=== PATIENT | female | born 1980 | race Caucasian/White ===

== ENCOUNTER → 2020-11-24 | Outpatient (CLI) | payer OTHER ==
[~2020-11-24] MED LIST: OXYC-325 PO
== END ==
LOC: LAB 10:43
PROVIDERS: ATTEND Surgery
DX: Z01.812 Encounter for preprocedural laboratory examination (principal); Z20.822 Contact with and (suspected) exposure to COVID-19; K80.10 Calculus of gallbladder with chronic cholecystitis without obstruction
CPT/HCPCS: U0003

== ENCOUNTER 2020-11-27 06:38 | Day surgery (SDC) | payer OTHER ==
[~2020-11-27 06:38] MED LIST changes: +HYDROmorphone 2 MG/ML VIAL IVP PRN; +IV RINGERS,LACTATED 1000ML 1,000 ML IV SCH; +MORPHINE SULFATE 2 MG/ML VIAL. IVP PRN; -OXYC-325 PO; +PROCHLORPERAZINE 10 MG/2 ML VIAL. IVP PRN; +fentaNYL PF VIAL 100 MCG/2 ML VIAL IVP PRN
[2020-11-27] MEDS ORDERED: BUPIVACAINE-EPI 0.25% 30 ML VIAL KIT. ONE (07:14)
[2020-11-27] MEDS ORDERED: IOHEXOL 300 MG/ML 50 ML VIAL. ONE (07:14)
[2020-11-27] MEDS ORDERED: SURGICEL HEMOSTAT 4X8 EACH. ONE (07:14)
[2020-11-27] MEDS ORDERED: LIDOCAINE 2% PF 5 ML VIAL. ONE (07:15)
[2020-11-27] MEDS ORDERED: SCOPOLAMINE 1.5MG PATCH. TD SCH (07:15)
[2020-11-27] MEDS ORDERED: ACETAMINOPHEN 500 MG TABLET PO ONE (07:15)
[2020-11-27] MEDS ORDERED: PROPOFOL 10 MG/ML (20ML) VIAL. IV ONE (07:15)
[2020-11-27] MEDS ORDERED: FAMOTIDINE 20 MG/2 ML VIAL ONE (07:15)
[2020-11-27] MEDS ORDERED: DEXAMETHASONE SOD PHOS 4 MG/ML VIAL ONE ×2 (07:15→07:54)
[2020-11-27] MEDS ORDERED: ROCURONIUM 50 MG/5 ML VIAL. ONE (07:15)
[2020-11-27] MEDS ORDERED: ONDANSETRON PF 4 MG/2 ML VIAL. ONE (07:15)
[2020-11-27] MEDS ORDERED: MIDAZOLAM HCL/PF 2 MG/2 ML VIAL. ONE (07:16)
[2020-11-27] MEDS ORDERED: fentaNYL PF VIAL 100 MCG/2 ML VIAL ONE ×2 (07:16→09:36)
[2020-11-27] MEDS ORDERED: GLYCOPYRROLATE 1 MG/5 ML VIAL. ONE (07:55)
[2020-11-27] MEDS ORDERED: NEOSTIGMINE METHYLSULFATE 5 MG/5 ML SYRINGE. ONE (08:12)
[2020-11-27] MEDS ORDERED: KETOROLAC 30 MG/ML VIAL. ONE (08:12)
[2020-11-27] MEDS ORDERED: PHENYLEPHRINE in 0.9% NACL PF 1 MG/10 ML SYRINGE. IV ONE (08:13)
[2020-11-27] MEDS ORDERED: SEVOFLURANE 61 TO 120 MINUTES. IH ONE (09:03)
--- NOTE | 2020-11-27 09:06 | PDOC4 ---
Operative Note Operative Note Date: November 272020 at 902 Preoperative diagnosis: Chronic cholecystitis cholelithiasis Postoperative diagnosis: Same Procedure: Laparoscopic cholecystectomy Surgeon: Vipul Specimen: Gallbladder Dictation: Patient is a 40-year-old female who has right upper quadrant abdominal pain ultrasound showing gallstones. The procedure of laparoscopic cholecystectomy was explained to the patient detail risk benefits were also discussed occluding bleeding infection injury to intra-abdominal contents possible necessitating further or open operations alternatives to this procedure also discussed with the patient who seemed to understand and gave both verbal and written consent to have the procedure performed. Patient was taken to the operating room placed in the supine position general anesthesia was initiated once patient was sleeping intubated her abdomen was prepped and draped in usual sterile fashion using ChloraPrep area just below the umbilicus was injected with quarter percent Marcaine with epinephrine incision was made 11 blade scalpel and a varies needle was placed within the abdomen creating pneumoperitoneum once this complete 11 mm port was placed and a 5 mm camera was placed within the abdomen which was inspected no other ab maladies were noted. 5 mm port was placed in the epigastrium a 5 mm port was placed in the right midabdomen a 5 mm port was placed in the right lateral abdomen. The dome of the gallbladder is grasped retracted cephalad the infundibulum the gallbladder is grasped retracted laterally exposing the triangle. The adherent tissues the triangle were taken down with blunt dissection exposing the cystic duct which was doubly clipped and transected similarly the cystic artery was visualized doubly clipped and transected as the gallbladder is being taken off the liver with hook electrocautery a fair amount of bleeding was noted in the gallbladder fossa this was grasped with a grasper stop the bleeding a clip was then placed on the p roximal and distal sides of the grasper which stopped the bleeding Surgicel was then placed in the gallbladder fossa and the rest of the gallbladder is taken off with hook electrocautery placed in Endo Catch bag moving the umbilicus. Right upper quadrant was irrigated and suctioned dried the Surgicel was removed there is still little bit of oozing from the same area another strip of Surgicel was placed in this area pressure was held and then Maddison powder was then placed in the area once the Maddison powder then placed bleeding had stopped. At this point the pneumoperitoneum was reduced all ports were removed the fascial defect at the umbilicus was closed with a [id number] 0 Vicryl suture and the skin was reapproximated all port sites for subcuticular Monocryl Mastisol Steri- Strips and island dressings were applied. Patient was awakened extubated in the operating room taken to recovery in stable condition all sponge instrument needle counts listed as correct estimated blood loss 60 mL TAL SUMMERS MD Nov 27, 2020 09:06
--- NOTE | 2020-11-27 09:07 | DISCH ---
DISCHARGE INSTRUCTIONS Condition on Discharge Condition on Discharge: Stable Activity After Discharge Activity Instructions for Disc: Avoid exertion Other activity instructions: No lifting more than 20 pounds for 2 weeks Diet after Discharge Diet after Discharge: Low Fat Wound Incision Care Other wound/incision instructi: May shower in 24 hours Contacting the after DC Call your doctor for: If your condition worsens Follow-Up Follow up with: Dr. Summers in 2 weeks TAL SUMMERS MD Nov 27, 2020 09:07
[2020-11-27] MEDS ORDERED: OXYC-325 PO (09:29)
[2020-11-27] MEDS ORDERED: oxyCODONE/APAP 5/325 1 TAB TABLET PO ONE ×2 (09:30)
[2020-11-27] MEDS: fentaNYL PF VIAL 100 MCG/2 ML VIAL IVP PRN ×2 (09:40→09:47)
[2020-11-27 10:15] VITALS: BP 118/67
--- NOTE | 2020-12-01 18:09 | PATHOLOGY ---
[facility] Accession Number: [id number] . 01 Material submitted: . gallbladder - GALLBLADDER . 01 Clinical history: . CHRONIC CHOLECYSTITIS WITH CALCULUS . 02 Diagnosis: Gallbladder, laparoscopic cholecystectomy: - Cholelithiasis. - Cholesterolosis, focal. - Chronic cholecystitis with focally increased eosinophils. . (JPM:mm; 12/01/2020) PENDING SALE TO [facility] 12/01/2020 1558 Local . 02 Comment: There is no evidence of malignancy. . (JPM:mml; 12/01/2020) . 02 Electronically signed: . Jimbo Ivory MD, Pathologist NPI- [id number] . 01 Gross description: . Received in formalin labeled "Black, Patti, gallbladder" is an intact cholecystectomy specimen measuring 7.7 x 4.0 x 2.3 cm. The serosa is shane-purple and hemorrhagic with a full thickness defect in the fundus measuring 1.5 x 1.3 cm. The specimen is opened to reveal pale shane focally hemorrhagic mucosa without polyps or masses. The average wall thickness is 0.1-0.2 cm. Multiple shane-green roughened calculi fill the entire gallbladder lumen, measuring in aggregate 7.0 x 2.0 x 1.5 cm and ranging from 0.3-2.3 cm in greatest dimension. Mechanical Research Engineer sections of the fundus and body and the cystic duct margin are submitted in A1. ([employer]; 11/29/2020) [facility] 11/29/2020 0908 Local . 02 Pathologist provided ICD-10: K80.10 . 02 CPT . 401811 Specimen Comment: A courtesy copy of this report has been sent to [phone] Specimen Comment: Report sent to / Performed at: 01 [facility] [address], [place], [place] [id number] MD Erich Mancini MD Phone: [phone] Performed at: 02 [facility] [address] [place], [place] [id number] MD Jimbo Ivory MD Phone: [phone]
== END 2020-11-27 10:40 | disposition home or self-care (01) ==
LOC: SURG 06:38 → EDUNIT# 08:00 → SURG 10:40
PROVIDERS: ATTEND Surgery
DX: K80.10 Calculus of gallbladder with chronic cholecystitis without obstruction (principal); Z79.899 Other long term (current) drug therapy; Z98.890 Other specified postprocedural states; Z88.0 Allergy status to penicillin; Z88.8 Allergy status to other drugs, medicaments and biological substances
CPT/HCPCS: 47562; 81025; J0780; J1100; J1956; J2250; J2370; J2405; J2704; J2710; J3010; J3490; J7120; 88304; J1885; Q9967